=== PATIENT | female | born 1950 | race Caucasian/White ===

== ENCOUNTER 2021-08-21 08:38 | Emergency (ER) | payer MEDICARE ==
[~2021-08-21] VITALS: Ht 165.1 cm; Wt 68.0 kg
[2021-08-21] MEDS ORDERED: GUAIFENESIN-CODEINE 5 ML SYRUP PO ONE (11:00)
[2021-08-21 12:05] LABS: BASOPHILS % (AUTO) 0.2 % (0.0-5.0); EOSINOPHILS % (AUTO) 0.4 % (0.0-8.0); HEMATOCRIT 40.1 % (36-48); LYMPHOCYTES % (AUTO) 9.5 % (21.0-51.0); MEAN CORPUSCULAR HGB CONC 32.2 g/dL (32.0-36.0); MONOCYTES % (AUTO) 8.3 % (3.0-13.0); NEUTROPHILS % (AUTO) 81.4 % (40.0-77.0); PLATELET COUNT (AUTO) 369 K/uL (130-400); RED BLOOD CELL COUNT(AUTO) 4.61 MIL/uL (4.00-5.50); RED CELL DISTRIBUTION WIDTH 12.1 % (11.0-15.5); WHITE BLOOD COUNT (AUTO) 8.5 K/uL (4.8-10.8)
[2021-08-21 12:21] LABS: ALBUMIN 2.7 g/dL (3.5-5.0); BILIRUBIN,TOTAL 0.4 mg/dL (0.2-1.0); CREATININE 0.6 mg/dL (0.5-1.5); CRP QUANTITATIVE 77.2 mg/L (0.00-9.0); POTASSIUM 4.3 mmol/L (3.5-5.1)
[2021-08-21] MEDS ORDERED: ACETAMINOPHEN 500 MG TABLET PO ONE (13:00)
[2021-08-21] MEDS ORDERED: D-ME118S47 PO (13:01)
[2021-08-21] MEDS ORDERED: ACET-66 PO (13:01)
[2021-08-21 13:33] VITALS: BP 144/89
[2021-08-21 13:37] LABS: ERYTHROCYTE SEDIMENTATION RATE 115 MM/HR (0-30)
== END 2021-08-21 13:30 | disposition home or self-care (01) ==
LOC: EDH 08:38
DX: U07.1 COVID-19 (principal)
CPT/HCPCS: 36415; 71045; 80053; 85025; 85651; 86140; 87635; 87804 ×2; 99284; C9803

== ENCOUNTER 2021-08-25 10:22 | Emergency (ER) | payer MEDICARE ==
[~2021-08-25] VITALS: Ht 165.1 cm; Wt 68.0 kg
[~2021-08-25 10:22] MED LIST: ACET-66 PO; D-ME118S47 PO
[2021-08-25 10:23] VITALS: BP 113/77
[2021-08-25] MEDS ORDERED: IBUP-2070 PO (16:52)
== END 2021-08-25 17:13 | disposition home or self-care (01) ==
LOC: EDH 10:22
DX: R51.9 Headache, unspecified (principal); J32.9 Chronic sinusitis, unspecified; Z79.899 Other long term (current) drug therapy; Z98.890 Other specified postprocedural states
CPT/HCPCS: 70450; 70486